=== PATIENT | female | born 2000 | race Two or more races ===

== ENCOUNTER 2022-05-27 21:19 | Emergency (ER) | payer OTHER ==
[~2022-05-27] VITALS: Ht 180.3 cm; Wt 54.4 kg
[~2022-05-27 21:19] MED LIST: NEXIUM20 MG/PACK; ZANTAC150 M3
[2022-05-27] MEDS ORDERED: PRENATAL + DHA1 EAC1 (22:06)
== END 2022-05-28 00:15 | disposition home or self-care (01) ==
LOC: ER 21:19
DX: O98.512 Other viral diseases complicating pregnancy, second trimester (principal); U07.1 COVID-19; Z3A.17 17 weeks gestation of pregnancy